=== PATIENT | female | born 1935 | race Caucasian/White ===

== ENCOUNTER 2019-10-19 08:02 | Emergency (ER) | payer MEDICARE, BC ==
[2019-10-19] MEDS ORDERED: Sodium Chloride 0.9% 10 ML Syringe FLUSH PRN (08:06)
[2019-10-19] MEDS ORDERED: Iopamidol 612 MG/ML 100 ML Bottle IVPUSH ONE ×2 (08:11→09:30)
[2019-10-19] MEDS ORDERED: Sodium Chloride 0.9% 250 ML IV SCH (08:15)
[2019-10-19] MEDS ORDERED: Ondansetron 4 MG/2 ML SDV IVPUSH ONE (08:16)
[2019-10-19] MEDS ORDERED: Sodium Chloride 0.9% 1,000 ML IV SCH (08:45)
--- NOTE | 2019-10-19 10:19 | EDM.PDOC ---
ED HPI GENERAL MEDICAL PROBLEM - General Chief Complaint: Abdominal Pain Stated Complaint: Abdominal pain Time Seen by Provider: 10/19/19 08:25 Source of Information: Reports: Patient, Family History Limitations: Reports: No Limitations - History of Present Illness INITIAL COMMENTS - FREE TEXT/NARRATIVE: Patient comes to ER with history of abdominal pain that started around three months ago. Since that time she has noticed gradual abdominal bloating along with weight gain of 23 pounds. Pain is epigastric and RLQ. Worse with eating and drinking/severely affecting how she eats. Sometimes feels worse laying flat. Denies blood in stool. No obvious bowel changes/constipation. No problems with urinating. Sometimes having BM/urinating helps improve abdominal discomfort. Reports sometimes severe discomfort in epigastric area and when she tries to eat/drink "things come back up". Right lower quadrant pain is crampy/sometimes sharp/comes and goes. Was to have HPylori breath test but that was cancelled "due to Covid". Review of chart info obtained from [facility] in [place] shows that they felt there was psychogenic contribution to patient's vomiting complaint. Has not been referred to GI. No HEENT changes/headaches/vision changes/URI complaints. No new SOB/respiratory changes. Has history of some RAD/Asthma for which she has inhaler. No chest pain/palpitation/syncope/dizziness GI noted above No changes/hematuria No neuro changes/weaknesses No skin changes. Has gone to local clinic in [facility] where she lives as noted above. No referral to GI. Says they checked her labs and she was told they were "good". Family brought her here to [place] as pain has been worsening and they are frustrated. Last colonoscopy about 9 years ago Has had appendix removed. Abdominal Pain Pain Score (Numeric/FACES): 4 - Related Data Allergies Allergy/AdvReac Type Severity Reaction Status Date / Time latex Allergy Rash Verified 10/19/19 08:16 lisinopril AdvReac Cough Verified 10/19/19 08:16 Home Meds: Home Meds Albuterol [Ventolin HFA] 2 puff INH QID PRN 10/19/19 [History] Chlorthalidone 25 mg PO DAILY 10/19/19 [History] Levothyroxine [Synthroid] 50 mcg PO DAILY 07/06/20 [History] Losartan [Cozaar] 100 mg PO DAILY 10/19/19 [History] Metoprolol Succinate 200 mg PO DAILY 10/19/19 [History] Ondansetron [Zofran ODT] 4 mg PO Q6H PRN #12 tab.dis 10/19/19 [Rx] Potassium Chloride 20 meq PO DAILY 10/19/19 [History] Rivaroxaban [Xarelto] 20 mg PO DAILY 10/19/19 [History] Past Medical History Cardiovascular History: Reports: Afib, Hypertension, Other (See Below) (AI and Tricuspid/Mitral regurgitation) Respiratory History: Reports: Asthma Gastrointestinal History: Reports: Diverticulosis Endocrine/Metabolic History: Reports: Hypothyroidism, Obesity/BMI 30+ Social & Family History - Tobacco Use Smoking Status *Q: Never Smoker - Caffeine Use Caffeine Use: Reports: Coffee - Alcohol Use Alcohol Use History: Yes Alcohol Use Frequency: Rarely - Recreational Drug Use Recreational Drug Use: No Drug Use in Last 12 Months: No ED ROS GENERAL - Review of Systems Review Of Systems: See Below Constitutional: Reports: Weight Gain HEENT: Reports: Glasses Respiratory: Reports: Shortness of Breath (only with activity/no change from baseline). Denies: Cough, Sputum, Hemoptysis Cardiovascular: Denies: Chest Pain, Lightheadedness, Syncope GI/Abdominal: Reports: Abdominal Pain, Distension. Denies: Black Stool, Bloody Stool, Constipation, Diarrhea, Mucous in Stool, Nausea, Vomiting : Reports: No Symptoms Musculoskeletal: Reports: Other (no change from baseline) Skin: Reports: No Symptoms Neurological: Reports: No Symptoms Psychiatric: Reports: No Symptoms Hematologic/Lymphatic: Reports: No Symptoms ED EXAM, GENERAL - Physical Exam Exam: See Below Exam Limited By: No Limitations General Appearance: Alert, WD/WN, No Apparent Distress Eye Exam: Bilateral Eye: EOMI, PERRL Ears: Hearing Grossly Normal Nose: No: Nasal Deformity, Nasal Swelling, Nasal Drainage Throat/Mouth: Normal Lips, Normal Voice, No Airway Compromise Head: Atraumatic, Normocephalic Neck: Supple, Non-Tender, Full Range of Motion Respiratory/Chest: No Respiratory Distress, Lungs Clear, Normal Breath Sounds, No Accessory Muscle Use, Chest Non-Tender Cardiovascular: Regular Rate, Rhythm, No Edema, No Murmur Peripheral Pulses: 2+: Radial (L), Radial (R) GI/Abdominal: Normal Bowel Sounds, Soft, Other (obese. Patient complains of discomfort with palpation in epigastric and RLQ area but shows no visable pain response.). No: Guarding, Rigid, Rebound, Mass (Female) Exam: Deferred Rectal (Female) Exam: Deferred Back Exam: Normal Inspection Extremities: Normal Inspection, Normal Capillary Refill Neurological: Alert, Oriented, Normal Cognition, Normal Gait, No Motor/Sensory Deficits Psychiatric: Normal Affect, Normal Mood Skin Exam: Warm, Dry, Intact, Normal Color Course - Vital Signs Last Recorded V/S: Last Vital Signs Temp 36.2 C 10/19/19 12:17 Pulse 73 10/19/19 12:17 Resp 20 10/19/19 12:17 BP 166/96 H 10/19/19 12:17 Pulse Ox 99 10/19/19 12:17 - Orders/Labs/Meds Orders: Active Orders 24 hr Category Date Time Status Abdomen 1V Upright [CR] Stat Exams 10/19/19 10:42 Ordered Abdomen Pelvis w Cont [CT] Stat Exams 10/19/19 08:04 Ordered Chest 2V [CR] Stat Exams 10/19/19 08:04 Taken Sodium Chloride 0.9% @ 100 MLS/HR(1,000ml) Med 10/19/19 08:45 Ordered Sodium Chloride 0.9% [Normal Saline] 1,000 ml IV ASDIRECTED Sodium Chloride 0.9% [Saline Flush] Med 10/19/19 08:06 Active 10 ml FLUSH ASDIRECTED PRN Saline Lock Insert [OM.PC] Routine Oth 10/19/19 08:06 Ordered Medication Orders Sodium Chloride (Normal Saline) 1,000 mls @ 100 mls/hr IV ASDIRECTED LATHA Last Admin: 10/19/19 08:40 Dose: 100 mls/hr Documented by: KAN Sodium Chloride (Saline Flush) 10 ml FLUSH ASDIRECTED PRN PRN Reason: Keep Vein Open Last Admin: 10/19/19 08:26 Dose: 10 ml Documented by: KAN Labs: Laboratory Tests 10/19/19 10/19/19 10/19/19 Range/Units 08:15 08:15 08:15 WBC 5.9 (4.0-10.2) K/uL RBC 4.68 (3.77-5.09) M/uL Hgb 13.4 (11.7-15.5) g/dL Hct 40.9 (34.0-46.0) % MCV 87.4 (84.0-98.0) fL MCH 28.6 (28.2-33.3) pg MCHC 32.8 (31.7-36.0) g/dL RDW 13.9 (11.2-14.1) % Plt Count 246 (150-350) K/uL Neut % (Auto) 63.4 (45.0-80.0) % Lymph % (Auto) 23.0 (10.0-50.0) % [place] % (Auto) 9.0 (2.0-14.0) % Eos % (Auto) 3.9 (0.0-5.0) % Baso % (Auto) 0.7 (0.0-2.0) % Neut # (Auto) 3.73 (1.40-7.00) K/uL Lymph # (Auto) 1.35 (0.50-3.50) K/uL [place] # (Auto) 0.53 (0.00-1.00) K/uL Eos # (Auto) 0.23 (0.00-0.50) K/uL Baso # (Auto) 0.04 (0.00-0.20) K/uL Sodium 140 (136-145) mmol/L Potassium 3.6 (3.5-5.1) mmol/L Chloride 102 (98-107) mmol/L Carbon Dioxide 27.9 (21.0-32.0) mmol/L BUN 20 H (7-18) mg/dL Creatinine 0.95 (0.51-1.17) mg/dL Est Cr Clr Drug Dosing 36.47 mL/min Estimated GFR (MDRD) 56 mL/min Glucose 99 (74-106) mg/dL Calcium 9.2 (8.5-10.1) mg/dL Total Bilirubin 1.3 H (0.2-1.0) mg/dL AST 30 (15-37) U/L ALT 28 (12-78) U/L Alkaline Phosphatase 57 (46-116) IU/L Total Protein 7.5 (6.4-8.2) g/dL Albumin 4.0 (3.4-5.0) g/dL Amylase (25-115) U/L Lipase (73-393) U/L TSH, Ultra Sensitive 0.709 (0.358-3.740) mIU/mL Specimen Type Urine Color Urine Appearance Urine pH (5.0-9.0) Ur Specific [place] (1.005-1.030) Urine Protein (NEGATIVE) mg/dL Urine Glucose (UA) (NEGATIVE) mg/dL Urine Ketones (NEGATIVE) mg/dL Urine Occult Blood (NEGATIVE) Urine Nitrite (NEGATIVE) Urine Bilirubin (NEGATIVE) Urine Urobilinogen (0.2-1.0) E.U./dL Ur Leukocyte Esterase (NEGATIVE) U Hyaline Cast (Auto) Urine RBC /HPF Urine WBC /HPF Ur Epithelial Cells /LPF Urine Bacteria (NONE TO FEW) /HPF 10/19/19 10/19/19 Range/Units 08:15 09:24 WBC (4.0-10.2) K/uL RBC (3.77-5.09) M/uL Hgb (11.7-15.5) g/dL Hct (34.0-46.0) % MCV (84.0-98.0) fL MCH (28.2-33.3) pg MCHC (31.7-36.0) g/dL RDW (11.2-14.1) % Plt Count (150-350) K/uL Neut % (Auto) (45.0-80.0) % Lymph % (Auto) (10.0-50.0) % [place] % (Auto) (2.0-14.0) % Eos % (Auto) (0.0-5.0) % Baso % (Auto) (0.0-2.0) % Neut # (Auto) (1.40-7.00) K/uL Lymph # (Auto) (0.50-3.50) K/uL [place] # (Auto) (0.00-1.00) K/uL Eos # (Auto) (0.00-0.50) K/uL Baso # (Auto) (0.00-0.20) K/uL Sodium (136-145) mmol/L Potassium (3.5-5.1) mmol/L Chloride (98-107) mmol/L Carbon Dioxide (21.0-32.0) mmol/L BUN (7-18) mg/dL Creatinine (0.51-1.17) mg/dL Est Cr Clr Drug Dosing mL/min Estimated GFR (MDRD) mL/min Glucose (74-106) mg/dL Calcium (8.5-10.1) mg/dL Total Bilirubin (0.2-1.0) mg/dL AST (15-37) U/L ALT (12-78) U/L Alkaline Phosphatase (46-116) IU/L Total Protein (6.4-8.2) g/dL Albumin (3.4-5.0) g/dL Amylase 23 L (25-115) U/L Lipase 129 (73-393) U/L TSH, Ultra Sensitive (0.358-3.740) mIU/mL Specimen Type Urinvoid Urine Color Yellow Urine Appearance Slightly cloudy Urine pH 7.0 (5.0-9.0) Ur Specific [place] 1.015 (1.005-1.030) Urine Protein Negative (NEGATIVE) mg/dL Urine Glucose (UA) Negative (NEGATIVE) mg/dL Urine Ketones Negative (NEGATIVE) mg/dL Urine Occult Blood Negative (NEGATIVE) Urine Nitrite Negative (NEGATIVE) Urine Bilirubin Negative (NEGATIVE) Urine Urobilinogen 0.2 (0.2-1.0) E.U./dL Ur Leukocyte Esterase Trace H (NEGATIVE) U Hyaline Cast (Auto) Few Urine RBC 0-5 /HPF Urine WBC 0-5 /HPF Ur Epithelial Cells Moderate H /LPF Urine Bacteria Moderate H (NONE TO FEW) /HPF Meds: Medications Generic Name Dose Route Start Last Admin Trade Name Freq PRN Reason Stop Dose Admin Sodium Chloride 1,000 mls @ 100 mls/hr 10/19/19 08:45 10/19/19 08:40 Normal Saline IV 100 mls/hr ASDIRECTED LATHA Administration Sodium Chloride 10 ml 10/19/19 08:06 10/19/19 08:26 Saline Flush FLUSH 10 ml ASDIRECTED PRN Administration Keep Vein Open Discontinued Medications Generic Name Dose Route Start Last Admin Trade Name Freq PRN Reason Stop Dose Admin Iopamidol 100 ml 10/19/19 08:11 10/19/19 08:37 Isovue-300 (61%) IVPUSH 07/06/20 08:12 Not Given ONETIME ONE Iopamidol 100 ml 10/19/19 09:30 10/19/19 09:01 Isovue-300 (61%) IVPUSH 10/19/19 09:31 100 ml ONETIME ONE Administration Lorazepam 0.5 mg 10/19/19 12:10 10/19/19 12:18 Ativan PO 10/19/19 12:11 0.5 mg ONETIME ONE Administration Ondansetron HCl 4 mg 10/19/19 08:16 10/19/19 08:26 Zofran IVPUSH 10/19/19 08:17 4 mg ONETIME ONE Administration - Radiology Interpretation CT Results Date: 10/19/19 CT Results Time: 10:24 - Re-Assessments/Exams Free Text/Narrative Re-Assessment/Exam: Give persistence of weight gain and abdominal pain, CT of abdomen ordered. Unremarkable except for incidental finding of diverticulosis. No tumor or other abnormality noted. Plain upright film did not suggest constipation. CBC/Chem/UA/TSH/Amylase/Lipase obtained. Recently diagnosed with hypothyroidism and started on meds. This could contribute to patient's complaint of weight gain. Normal level TSH today. Labs overall unremarkable except for small bump in total Bili. It is noted that WBC normal and no ketones in urine. Patient appears to be well hydrated/vital signs stable. She does have elevated BP readings and says historically she has had a difficult time controlling her blood pressures. Call placed to [facility] in [facility] and patient's complaints/evaluation reviewed with several providers via group call. They recommended EGD and GI clinic appointment referrals but need that through patient's primary provider. Call placed to [facility] and information relayed to triage nurse who gave us a fax number to send today's noted to and request that referral requests be performed. Patient's primary provider is Melly VALVERDE. In meantime have recommended patient start a lower inflammatory diet/lower glycemic to see if abdominal discomfort improves. No wheat/dairy. Zofran PRN nausea will be prescribed. To follow up with PCP in [place] as well as GI. BP noted to creep up during followup planning. Suspect anxiety is component. Single Ativan PO dispensed in ER. Patient in agreement with above plan. Departure - Departure Time of Disposition: 12:24 Disposition: Home, Self-Care 01 Condition: Good Clinical Impression: Epigastric pain Dysphagia Qualifiers: Dysphagia type: unspecified Qualified Code(s): R13.10 - Dysphagia, unspecified Abdominal pain Qualifiers: Abdominal location: right lower quadrant Qualified Code(s): R10.31 - Right low er quadrant pain Hypertension Qualifiers: Hypertension type: essential hypertension Qualified Code(s): I10 - Essential (primary) hypertension - Discharge Information *PRESCRIPTION DRUG MONITORING PROGRAM REVIEWED*: Not Applicable *COPY OF PRESCRIPTION DRUG MONITORING REPORT IN PATIENT TOMER: Not Applicable Prescriptions: Ondansetron [Zofran ODT] 4 mg PO Q6H PRN #12 tab.dis PRN Reason: Nausea Referrals: PCP,None [Primary Care Provider] - Forms: ED Department Discharge Additional Instructions: Recommend elimination diet as discussed. No dairy/wheat/grains/processed foods for now. We will fax this note to your primary provider Rosenda Hong MD and request that she refer you to GI for EGD and office follow up as recommended by [facility]. See if Zofran helps with nausea. Follow up with [facility]'s clinic. Follow up otherwise as needed if you have sudden worsening problems. Keep track of BP trends! you were elevated today. Sepsis Event Note (ED) - Focused Exam Vital Signs: Vital Signs Temp Pulse Resp BP Pulse Ox 10/19/19 12:17 36.2 C 73 20 166/96 H 99 10/19/19 10:32 36.3 C 64 18 159/79 H 98 10/19/19 10:01 68 18 160/87 H 97 10/19/19 09:32 70 18 97/67 97 10/19/19 09:01 72 20 144/77 H 98 10/19/19 08:31 36.2 C 69 20 154/77 H 97 10/19/19 08:26 67 18 152/89 H 96 10/19/19 08:05 35.8 C L 71 18 142/82 H 97 10/19/19 08:02 35.8 C L 70 20 161/72 H 98 - My Orders Last 24 Hours: My Active Orders 10/19/19 08:04 Abdomen Pelvis w Cont [CT] Stat Chest 2V [CR] Stat 10/19/19 08:06 Sodium Chloride 0.9% [Saline Flush] 10 ml FLUSH ASDIRECTED PRN Saline Lock Insert [OM.PC] Routine 10/19/19 08:45 Sodium Chloride 0.9% @ 100 MLS/HR(1,000ml) Sodium Chloride 0.9% [Normal Saline] 1,000 ml IV ASDIRECTED 10/19/19 10:42 Abdomen 1V Upright [CR] Stat - Assessment/Plan Last 24 Hours: My Active Orders 10/19/19 08:04 Abdomen Pelvis w Cont [CT] Stat Chest 2V [CR] Stat 10/19/19 08:06 Sodium Chloride 0.9% [Saline Flush] 10 ml FLUSH ASDIRECTED PRN Saline Lock Insert [OM.PC] Routine 10/19/19 08:45 Sodium Chloride 0.9% @ 100 MLS/HR(1,000ml) Sodium Chloride 0.9% [Normal Saline] 1,000 ml IV ASDIRECTED 10/19/19 10:42 Abdomen 1V Upright [CR] Stat
[2019-10-19] MEDS ORDERED: LORazepam 0.5 MG Tab PO ONE (12:10)
== END 2019-10-19 12:50 | disposition home or self-care (01) ==
LOC: LL.ED 08:02
DX: R10.13 Epigastric pain (principal); R10.31 Right lower quadrant pain; R13.10 Dysphagia, unspecified; I10 Essential (primary) hypertension; I48.91 Unspecified atrial fibrillation; E03.9 Hypothyroidism, unspecified; J45.909 Unspecified asthma, uncomplicated; E66.9 Obesity, unspecified; Z68.32 Body mass index [BMI] 32.0-32.9, adult; Z88.8 Allergy status to other drugs, medicaments and biological substances; Z91.040 Latex allergy status; Z79.899 Other long term (current) drug therapy; Z79.01 Long term (current) use of anticoagulants
CPT/HCPCS: 36415; 71046; 74018; 74177; 80053; 81001; 82150; 83690; 84443; 85025; 96374; 99283; 99284-25; A9270-GY; J2405; J7030; Q9967

== ENCOUNTER → 2019-10-22 | Day surgery (SDC) | payer MEDICARE, BC ==
[~2019-10-22] MED LIST: Lactated Ringers 1,000 ML IV SCH; Lidocaine 2% 5 ML SDV ONE; Propofol 200 MG/20 ML SDV ONE; Sodium Chloride 0.9% 10 ML Syringe FLUSH PRN
--- NOTE | 2019-10-22 11:09 | PCM.OPNOTE ---
- General Post-Op/Procedure Note Date of Surgery/Procedure: 10/22/19 Operative Procedure(s): EGD with Bx Findings: Erosions in antrum Pre Op Diagnosis: Abd pain Post-Op Diagnosis: Same Anesthesia Technique: ADONIS Primary Surgeon: Chaz Crenshaw Anesthesia Provider: Kelli Soriano EBL in mLs: 0 Complications: None Condition: Good
--- NOTE | 2019-11-05 14:36 | OR ---
Date of Procedure: 10/22/2019 PREOPERATIVE DIAGNOSIS: Epigastric abdominal pain. POSTOPERATIVE DIAGNOSIS: Superficial ulcer of the gastric antrum. PROCEDURE: EGD with biopsy. ANESTHESIA: IV sedation. PROCEDURE IN DETAIL: Patient was brought to the procedure room where she was placed on left side and IV sedation administered. Oral bite block was placed, and the upper endoscope advanced into the esophagus under direct vision without difficulty. The scope was advanced to the third portion of the duodenum. Duodenum and pylorus are normal. At the distal antrum in the pre-pyloric area, she has a healing ulcer or erosion of approximately 5 x 10 mm. Photographs were taken. I did two random biopsies from the antrum to check for Helicobacter pylori. The body and fundus were normal. Retroflexion was normal. Air was removed from the stomach, and the scope withdrawn through the esophagus, which all appears normal. The patient tolerated the procedure well and returned to recovery in stable condition. Patient will be started on omeprazole and follow up with her primary provider. If Helicobacter pylori is present, this should be treated. NEVAEH DELEON MD /[id number]
== END | disposition home or self-care (01) ==
LOC: LL.SDS 09:44
PROVIDERS: ATTEND Surgery
DX: K29.50 Unspecified chronic gastritis without bleeding (principal); K25.9 Gastric ulcer, unspecified as acute or chronic, without hemorrhage or perforation; F41.9 Anxiety disorder, unspecified; I11.0 Hypertensive heart disease with heart failure; I48.91 Unspecified atrial fibrillation; I50.9 Heart failure, unspecified; Z79.01 Long term (current) use of anticoagulants; Z88.8 Allergy status to other drugs, medicaments and biological substances; Z91.040 Latex allergy status; Z79.899 Other long term (current) drug therapy
CPT/HCPCS: 00731; 88305; 88342; J2001; J2704